=== PATIENT | female | born 1965 | race Two or more races ===

== ENCOUNTER 2018-11-16 14:53 | Emergency (ER) | payer OTHER ==
[2018-11-16 14:56] VITALS: BP 153/87; PULSE 89; RESP 18; TEMP 98.5; O2SAT 99
--- NOTE | 2018-11-16 15:49 | ED PDOC ---
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 Patient states that three days ago she tripped over a sidewalk and fell onto the posterior aspect of her right hand, having pain and swelling to the area since. Last took Ibuprofen today around noon. Also today, patient had an XR of the hand done and was told there was a fracture, subsequently advised to come to the ED for further eval. Otherwise, denies numbness and tingling in the hand. Past Medical History Reviewed: Historical Data, Nursing Documentation, Vital Signs Vital Signs: Last Vital Signs Temp 98.5 F 11/16/18 14:55 Pulse 89 11/16/18 14:55 Resp 18 11/16/18 14:55 BP 153/87 H 11/16/18 14:55 Pulse Ox 99 11/16/18 14:55 Primary Care Provider: Claudio Garibay V - Medical History PMH: HTN, Hyperlipidemia - Surgical History Surgical History: No Surg Hx - Family History Family History: States: Unknown Family Hx - Home Medications Home Medications: Ambulatory Orders Medication Instructions Recorded Ibuprofen [Motrin Tab] 600 mg PO Q6 PRN 7 Days tab 11/16/18 - Allergies Allergies/Adverse Reactions: Allergies Allergy/AdvReac Type Severity Reaction Status Date / Time No Known Allergies Allergy Verified 11/16/18 14:58 Review of Systems ROS Statement: Except As Marked, All Systems Reviewed And Found Negative Musculoskeletal: Positive for: Hand Pain (right hand pain and swelling) Neurological: Negative for: Numbness (or tingling in hand) Physical Exam - Reviewed Nursing Documentation Reviewed: Yes Vital Signs Reviewed: Yes - Physical Exam Appears: Positive for: No Acute Distress Cardiovascular/Chest: Positive for: Regular Rate, Rhythm Respiratory: Positive for: Normal Breath Sounds. Negative for: Respiratory Distress Pulses-Radial (L): 2+ Pulses-Radial (R): 2+ Extremity: Positive for: Tenderness (right hand positive for ecchymosis on both posterior and palmar aspects with tenderness to palpation of the fourth and fifth distal metacarpals), Capillary Refill (less than 2 seconds), Swelling (positive swelling on right hand mostly over the palm and digits 3-5). Negative for: Normal ROM (right hand: decreased ROM with flexion and extension of fifth digit, otherwise, normal flexion and extension of remainder of digits, wrist, and hand) Neurological/Psych: Positive for: Awake, Alert, Oriented (x3), Other (sensation to light touch intact to right hand including all digits, post palmar and poste rior aspects) - ECG O2 Sat by Pulse Oximetry: 99 (RA) Pulse Ox Interpretation: Normal Medical Decision Making Medical Decision Making: Time: 1535 Initial Impression: right finger fracture Initial Plan: --XR reviewed by me showing a minimally displaced fracture of the right fifth proximal phalanx at the base. --Pt offered Ibuprofen, but denies saying that she does not normally like to take medication. Advised patient to use Ibuprofen at home for pain as needed. --Ulnar gutter splint being placed to right hand and Dr. Francis, hand surgeon, was contacted. 1600 Patient stable for discharge and neurovascular intact after splint placement. Instructed to follow up with Dr. Francis. ------- Scribe Attestation: Documented by Lupe Harley, acting as a scribe for Shirin Guzman PA-C. Provider Scribe Attestation: All medical record entries made by the Scribe were at my direction and personally dictated by me. I have reviewed the chart and agree that the record accurately reflects my personal performance of the history, physical exam, medical decision making, and the department course for this patient. I have also personally directed, reviewed, and agree with the discharge instructions and disposition. Procedures - Splinting Location: Right hand Hand-Made Type: orthoglass Splint: ulnar Pre-Proc Neuro Vasc Exam: normal Post-Proc Neuro Vasc Exam: normal, unchanged from pre-exam Disposition - Clinical Impression Clinical Impression: Phalanx, proximal fracture of finger - Patient ED Disposition Is Patient to be Admitted: No Counseled Patient/Family Regarding: Studies Performed, Diagnosis, Need For Followup, Rx Given - Disposition Referrals: Bishop Francis MD [Medical Doctor] - Disposition: Routine/Home Disposition Time: 16:00 Condition: STABLE Additional Instructions: Follow up with hand surgeon within the next week. Keep hand elevated, rest it, and take Ibuprofen for pain. REturn to ER if your pain worsens or you begin to have numbness in the hand. Prescriptions: Ibuprofen [Motrin Tab] 600 mg PO Q6 PRN 7 Days tab PRN Reason: Pain, Moderate (4-7) Instructions: Finger Fracture (DC) Forms: [employer] ([place]), [facility] ED School/Work Excuse Print Language: LAO
== END 2018-11-16 16:22 | disposition home or self-care (01) ==
LOC: H.ER 14:53
DX: S62.614A Displaced fracture of proximal phalanx of right ring finger, initial encounter for closed fracture (principal); W19.XXXA Unspecified fall, initial encounter; Y92.480 Sidewalk as the place of occurrence of the external cause; E78.5 Hyperlipidemia, unspecified; I10 Essential (primary) hypertension